=== PATIENT | male | born 1965 | race Caucasian/White ===

== ENCOUNTER → 2018-09-20 | Outpatient (CLI) | payer SELFPAY | LOC: RAD 11:06 | DX: Z02.9 Encounter for administrative examinations, unspecified (principal) ==

== ENCOUNTER → 2018-10-25 | Outpatient (CLI) | payer OTHER ==
[~2018-10-25] MED LIST: CEPH250C37 PO; FAMO20TA28 PO; HYDR-385 PO; IBUP-1671 PO; IBUP800T37 PO; KET10 PO; OXYC-373 PO; PHEN200T32 PO; TAMS0.4C25 PO
--- NOTE | 2018-10-25 10:49 | RADIOLOGY IMAGING REPORT ---
FACILITY: [facility] PATIENT NAME: Pankaj Hummel : 1965 MR: [id number] V: [id number] EXAM DATE: ORDERING PHYSICIAN: PORFIRIO WILCOX TECHNOLOGIST: Location: [facility] [place] Patient: Pankaj Hummel : 1965 Visit/Account:[id number] Date of Sevice: 10/25/2018 Single view of the abdomen Indication: Right nephroureterolithiasis. Comparison: September 16, 2018. Findings: Bowel gas seen throughout the abdomen in a nonobstructive pattern. 6 mm calculus within the mid right ureter, slightly progressed since the prior radiograph from September 16, 2018. No additional definitive urolithiasis identified. There are a few stable calcifications p rojecting over the pelvis which likely represent phleboliths. IMPRESSION: 1. 6 mm calculus within the mid right ureter, previously within the proximal right ureter. Report Dictated By: Chalino Guo MD at 10/25/2018 10:41 AM Report E-Signed By: Chalino Guo MD at 10/25/2018 10:45 AM WSN:[email or web address]
== END ==
LOC: RAD 10:10
DX: N20.1 Calculus of ureter (principal)
CPT/HCPCS: 74018

== ENCOUNTER 2018-10-26 01:43 | Day surgery (SDC) | payer OTHER ==
[~2018-10-26] VITALS: Ht 182.9 cm; Wt 85.3 kg
[~2018-10-26 01:43] MED LIST changes: -CEPH250C37 PO; -FAMO20TA28 PO; +FAMOTIDINE 20 MG TAB PO ONE; -IBUP-1671 PO; -IBUP800T37 PO; +LIDOCAINE/SOD BICARB 8.4% SYR ID ONE; +MIDAZOLAM 2 MG/2 ML VIAL IVP PRN; +NORMOSOL R SOLN(*) 1000 ML BAG 1,000 ML IV PRN; -PHEN200T32 PO
[2018-10-26] MEDS ORDERED: fentaNYL CITR 100 MCG/2 ML AMP ONE ×2 (07:48→09:43)
[2018-10-26] MEDS ORDERED: MIDAZOLAM 2 MG/2 ML VIAL IVP PRN ×4 (08:00→09:00)
[2018-10-26] MEDS ORDERED: NORMOSOL R SOLN(*) 1000 ML BAG 1,000 ML IV PRN ×4 (08:00→09:00)
[2018-10-26] MEDS ORDERED: ONDANSETRON 4 MG/2 ML VIAL ONE (08:11)
[2018-10-26] MEDS ORDERED: DEXAMETHASONE SOD PHOS 10MG/ML ONE (08:11)
[2018-10-26] MEDS ORDERED: KETOROLAC 30 MG/ML VIAL ONE (08:11)
[2018-10-26] MEDS ORDERED: PROPOFOL(*)1000 MG/100 ML VIAL 100 ML ONE (08:23)
[2018-10-26 08:25] VITALS: BP 145/92
[2018-10-26] MEDS ORDERED: fentaNYL CITR 100 MCG/2 ML AMP IVP ONE (08:55)
[2018-10-26] MEDS ORDERED: FAMOTIDINE 20 MG TAB PO ONE ×2 (09:00)
[2018-10-26] MEDS ORDERED: cefTRIAXone(*) 1 GM VIAL 1 GM in NS(*) 0.9% 100 ML MINI-BAG 100 ML IVPB ONE (09:00)
[2018-10-26] MEDS ORDERED: LIDOCAINE/SOD BICARB 8.4% SYR ID ONE ×2 (09:00)
[2018-10-26] MEDS ORDERED: KETAMINE HCL-NS 50 MG/5 ML SYR ONE (09:16)
[2018-10-26] MEDS ORDERED: IOPAMIDOL-200 50 ML VIAL IS ONE (09:37)
[2018-10-26] MEDS ORDERED: NEOMYCIN/POLYMYX/BACITR 30 GM TP ONE (09:37)
[2018-10-26] MEDS ORDERED: BELLADONNA ALK/OPIUM 60MG SUPP PR ONE (09:37)
[2018-10-26] MEDS ORDERED: LIDOCAINE MPF 1% 5 ML VIAL ONE (09:43)
[2018-10-26] MEDS ORDERED: NS(*) 0.9% 100 ML BAG 100 ML ONE (10:06)
[2018-10-26] MEDS ORDERED: PHEN200T32 PO (11:11)
[2018-10-26] MEDS ORDERED: IBUP-1671 PO (11:11)
[2018-10-26] MEDS ORDERED: FAMO20TA28 PO (11:12)
[2018-10-26] MEDS ORDERED: CEPH250C37 PO (11:13)
[2018-10-26 11:15] VITALS: BP 118/83
[2018-10-26] MEDS ORDERED: IBUP800T37 PO (11:15)
--- NOTE | 2018-10-26 11:15 | NUR ---
1115 I WILL BE RESUMING CARE OF PATIENT FROM THE PACU. SEE PACU NOTES 1125 PATIENT BEGAN DRINKING GRAPE JUICE AND EATING CHEESE AND CRACKERS 1135 SBAR REPORT WAS GIVEN TO Moody SALGADO RN
--- NOTE | 2018-10-26 11:44 | RADIOLOGY IMAGING REPORT ---
FACILITY: [facility] PATIENT NAME: Pankaj Hummel : 1965 MR: [id number] V: [id number] EXAM DATE: ORDERING PHYSICIAN: PORFIRIO WILCOX TECHNOLOGIST: Location: [facility] Patient: Pankaj Hummle : 1965 Visit/Account:[id number] Date of Sevice: 10/26/2018 EXAMINATION: Intraoperative fluoroscopy with imaging of the abdomen 10/26/2018 9:38 AM HISTORY: STONES COMPARISON: KUB 10/25/2018 FLUOROSCOPY TIME: 0.05 minutes DOSE: Dose was 3.32 mGy. IMAGES: 5 FINDINGS: Intraoperative fluoroscopy was provided. Images show retrograde contrast injection on the right with a right ureteral stone. Images show placement of a right ureteral stent. IMPRESSION: Intraoperative fluoroscopy with right retrograde and stent placement. Report Dictated By: Ramon Justin MD at 10/26/2018 11:38 AM Report E-Signed By: Ramon Justin MD at 10/26/2018 11:40 AM WSN:[id number]
[2018-10-26 11:45] VITALS: BP 127/84
[2018-10-26 12:11] VITALS: BP 135/86
[2018-10-26 12:12] VITALS: BP 136/85
--- NOTE | 2018-10-26 15:46 | OPERATIVE REPORT 1 ---
EVENT DATE: October 26, 2018 SURGEON: Pradeep Sutherland MD ANESTHESIOLOGIST: Leonel Luna MD ANESTHESIA: General anesthesia. PREOPERATIVE DIAGNOSES 1. Right ureterolithiasis with associated intermittent severe ureterorenal colic. 2. Nausea, vomiting. POSTOPERATIVE DIAGNOSES 1. Right ureterolithiasis with associated intermittent severe ureterorenal colic. 2. Nausea, vomiting. PROCEDURES PERFORMED 1. Cystourethroscopy. 2. Right ureteral pyelograms. 3. Manipulation of right ureteral stone. 4. Placement of right ureteral stent 6-Ukrainian x 26 cm Percuflex Plus. DESCRIPTION OF PROCEDURE Under general anesthetic, the patient was prepped and draped in the extended lithotomy position. The 21 panendoscope was admitted through the urethra into the bladder. The urethra was normal. Prostate showed trilobar hyperplasia with fairly prominent median lobe. There was some intravesical extension to the trigone area. Trigone and ureteral orifices were normal. No bloody efflux from either orifice. Bladder showed 3 to 4+ trabeculation. No other demonstrable lesions. A 10 cone tip catheter was placed in the right distal ureter. The ureteral pyelogram showed the right ureteral stone. The 10 cone tip passed up the right collecting system to the area of the stone. Attempt to dislodge it at that point was unsuccessful. The access catheter was placed and then the guidewire. The ureter appeared to be narrow as well as the ureteral orifice. The stent was placed up the right collecting system, 6-Ukrainian x 26 cm Percuflex Plus. X-ray showed a full curl in the bladder, and visualization revealed a full curl in the bladder. The x-ray showed a full curl in the right kidney. There was a hydronephrotic drip of devyn, mucus-like urine. The bladder was drained. Scope was withdrawn. Patient tolerated the procedure satisfactorily and returned to the recovery room in satisfactory condition. This is a 53-year-old white male complaining of right ureterolithiasis with associated intermittent severe ureterorenal colic and nausea and vomiting. He had his latest episode approximately over the past three or four days. He was seen in Urgent Care on the October and then followed up in my office. Patient requested interventional therapy. That was discussed with him with his present. He has opted for evaluation and therapy today. See operative note for details. We plan followup this coming [place] with ureterorenoscopy, possible laser lithotripsy versus extracorporeal shock wave lithotripsy. I explained to the patient the side effects of the indwelling ureteral stent in the bladder to include urgency and frequency of urination and tenesmus. He seemed to understand. was present. Patient will be ready for discharge home when alert and functional. Force fluids, 12 glasses of water per day. Activities are as tolerated. He will follow up this coming Wednesday for evaluation and therapy and resolution of his problem. He will continue on usual medications. A copy of instructions was given to the patient. He is to strain all his urine and sent home with strainers. He was give a copy of explanations as to expectations from the indwelling right ureteral stent. Patient will discharge home on Keflex, Pepcid, Pyridium, and Motrin therapy. He has his [place] therapy as prescribed by Urgent Care. LIANE
== END 2018-10-26 11:15 | disposition home or self-care (01) ==
LOC: OR 01:43
DX: N20.2 Calculus of kidney with calculus of ureter (principal); R11.2 Nausea with vomiting, unspecified
CPT/HCPCS: 52330; 52332; 76000; C1758; C1769; C1894; C2617; J0696; J1100; J1885; J2001; J2250; J2405; J2704; J3010; J3490; J7050; Q9966

== ENCOUNTER 2018-10-31 02:11 | Day surgery (SDC) | payer OTHER ==
[~2018-10-31] VITALS: Ht 182.9 cm; Wt 84.4 kg
[~2018-10-31 02:11] MED LIST changes: +CEPH250C37 PO; +FAMO20TA28 PO; -FAMOTIDINE 20 MG TAB PO ONE; +IBUP-1671 PO; +IBUP800T37 PO; -LIDOCAINE/SOD BICARB 8.4% SYR ID ONE; -MIDAZOLAM 2 MG/2 ML VIAL IVP PRN; -NORMOSOL R SOLN(*) 1000 ML BAG 1,000 ML IV PRN; +PHEN200T32 PO
[2018-10-31] MEDS ORDERED: cefTRIAXone(*) 1 GM VIAL 1 GM in NS(*) 0.9% 100 ML MINI-BAG 100 ML IVPB ONE (11:00)
[2018-10-31] MEDS ORDERED: PROPOFOL EMUL(*) 10MG/ML 20 ML 40 ML ONE (11:33)
[2018-10-31] MEDS ORDERED: DEXAMETHASONE SOD PHOS 10MG/ML ONE (11:33)
[2018-10-31] MEDS ORDERED: ONDANSETRON 4 MG/2 ML VIAL ONE (11:33)
[2018-10-31] MEDS ORDERED: fentaNYL CITR 100 MCG/2 ML AMP ONE (11:34)
[2018-10-31 11:39] VITALS: BP 138/93
[2018-10-31 11:53] LABS: PLATELET COUNT, AUTOMATED 347 K/uL (150-450)
[2018-10-31 12:00] LABS: INR 0.98
[2018-10-31] MEDS ORDERED: FAMOTIDINE 20 MG TAB PO ONE (12:05)
[2018-10-31] MEDS ORDERED: NORMOSOL R SOLN(*) 1000 ML BAG 1,000 ML IV PRN (12:05)
[2018-10-31] MEDS ORDERED: MIDAZOLAM 2 MG/2 ML VIAL IVP PRN (12:05)
[2018-10-31] MEDS ORDERED: LIDOCAINE/SOD BICARB 8.4% SYR ID ONE (12:05)
--- NOTE | 2018-10-31 12:30 | RADIOLOGY IMAGING REPORT ---
FACILITY: [facility] PATIENT NAME: Pankaj Hummel : 1965 MR: [id number] V: [id number] EXAM DATE: ORDERING PHYSICIAN: PORFIRIO WILCOX [place]CHNOLOG[place] [facility] [place]ankaj [place] : 1965 Visit/Account:[id number] Date of Sevice: 10/31/2018 Supine abdomen, one view. HISTORY: Preop. COMPARISON: 10/25/2018. A 6 mm calcification projects on the right ureter at the level of the right L3 transverse process. T he superior end of a ureteral stent projects on the right renal pelvis. The inferior end of the sten t projects on the urinary bladder. Phleboliths are present in the left true pelvis. Moderate amount s of stool are scattered in the colon. No acute bony abnormalities. IMPRESSION: 6 mm right ureteral stone. Unremarkable right ureteral stent. Report Dictated By: Lonnie Arrington MD at 10/31/2018 12:23 PM Report E-Signed By: Lonnie Arrington MD at 10/31/2018 12:25 PM WSN:[email or web address]
--- NOTE | 2018-10-31 13:22 | RADIOLOGY IMAGING REPORT ---
FACILITY: [facility] [place] PATIENT NAME: Pankaj Hummel : 1965 MR: [id number] V: [id number] EXAM DATE: ORDERING PHYSICIAN: PORFIRIO WILCOX TECHNOLOGIST: Location: [facility] Patient: Pankaj Hummel : 1965 Visit/Account:[id number] Date of Sevice: 10/31/2018 C-ARM FLUORO 1 HR HISTORY: STONES Intraoperative films. Comparison made to retrograde study from 10/26/2018 5 Films available. Initial film shows a ureteral stent noted within the right ureter. There is a 6 mm calcific density in the proximal third aspect of the right ureter consistent with a right renal stone that is similar in location to the previous retrograde study from 10/26/2018. A double-J ureteral stent was removed an d a wire placed passing the stone. Subsequent film demonstrates no identifiable stone. Final film d emonstrates a double-J ureteral stent in the right ureter with no remaining stone IMPRESSION: 1. Fluoroscopic images demonstrating removal of a double J ureteral stent and the stone noted within the proximal right ureter with final films demonstrating a double-J ureteral stent in no identifiabl e stone in the right ureter Fluoroscopic time of 0.5 minutes. AK 3.32mGy Report Dictated By: Javier Ornelas MD at 10/31/2018 1:12 PM Report E-Signed By: Javier Ornelas MD at 10/31/2018 1:18 PM WSN:[email or web address]
[2018-10-31] MEDS ORDERED: KETOROLAC 30 MG/ML VIAL ONE (13:29)
[2018-11-02] MEDS ORDERED: cefTRIAXone(*) 1 GM VIAL 1 GM in NS(*) 0.9% 100 ML MINI-BAG 100 ML IVPB ONE (12:05)
--- NOTE | 2018-11-03 17:28 | OPERATIVE REPORT 1 ---
EVENT DATE: October 31, 2018 SURGEON: Pradeep Sutherland MD ANESTHESIOLOGIST: Pradeep Mustafa MD ANESTHESIA: General anesthetic. PREOPERATIVE DIAGNOSES 1. Right ureterolithiasis. 2. Status postoperative right ureteral stent placement. POSTOPERATIVE DIAGNOSES 1. Right ureterolithiasis. 2. Status postoperative right ureteral stent placement. PROCEDURES PERFORMED 1. Cystourethroscopy. 2. Removal of right ureteral stent. 3. Right ureterorenoscopy. 4. Laser lithotripsy of right ureteral stone, approximately 1 cm stone. 5. Extraction of multiple right ureteral stone fragments. 6. Right ureteral stent placement on a string. DESCRIPTION OF PROCEDURE Under general anesthetic, the patient was prepped and draped in the extended lithotomy position. The 21 panendoscope was admitted through the urethra into the bladder. The right ureteral stent was removed. A 0.038 guidewire was placed up the right collecting system. X-ray confirmed satisfactory positioning and the stone in the distal part of the right upper ureter. The ureterorenoscope passed through the urethra and prostate into the bladder and up the right collecting system without any difficulty. In the upper portion of the right ureter, the stone was encountered. It was an irregular brownish-sloan stone. The stone was laser lithotripsied in its entirety using the dusting technique. Multiple fragments were freed and delivered. The stone appeared to be satisfactorily disintegrated. The 0.038 guidewire again was passed up the right collecting system, and a 26- Sinhala x 26 cm Percuflex Plus with the string attached was left indwelling at the conclusion of the procedure. The bladder was evacuated free of any calculi and drained. The patient tolerated the procedure satisfactorily and returned to the recovery room in satisfactory condition. This is a 53-year-old white male who has had an upper ureteral stone since late August 2018. He was seen in the office early September 2018 and refused further evaluation and therapy at that time. Historically, the patient passed two stones spontaneously prior to this problem. Patient failed to pass his calculi, and the stone had moved very little if at all in recent followup. Options were discussed with the patient, and now with the severe pain, he wished further evaluation and therapy. That was accomplished earlier with a cysto and pyelograms and stent placement. Patient is in for further evaluation and treatment. That has been accomplished. See operative note for details. Patient will be ready for discharge home when alert and functional. To force fluids, 12 glasses of water per day. Activities are as tolerated. He is to strain all his urine. He was sent home with strainers. He is to follow up in the a.m. for his probable stent removal. Patient is to continue his cephalexin, Pepcid, Pyridium, Motrin, and [place] therapy as needed. MTDD
== END 2018-10-31 14:20 | disposition home or self-care (01) ==
LOC: OR 02:11
DX: N20.1 Calculus of ureter (principal)
CPT/HCPCS: 36415; 52352; 52356; 74018; 76000; 85025; 85610; C1769; C1894; C2617; J0696; J1100; J1885; J2250; J2405; J2704; J3010